=== PATIENT | female | born 1975 | race Caucasian/White ===

== ENCOUNTER 2017-06-09 18:26 | Emergency (ER) | payer MEDICAID ==
[~2017-06-09 18:26] MED LIST: ALBU8.5H4 IH; DIVA125T3 PO; LORA10TA7
== END 2017-06-09 18:42 | disposition left against medical advice (07) ==
LOC: ER 18:27
DX: Z53.21 Procedure and treatment not carried out due to patient leaving prior to being seen by health care provider (principal)

== ENCOUNTER 2017-12-23 10:46 | Emergency (ER) | payer MEDICAID ==
[~2017-12-23] VITALS: Ht 170.2 cm; Wt 68.0 kg
[~2017-12-23 10:46] MED LIST changes: -DIVA125T3 PO; +DIVA125T31 PO
[2017-12-23 10:53] VITALS: BP 116/60
[2017-12-23] MEDS ORDERED: acetaminophen 325mg tablet PO ONE (11:35)
[2017-12-23] MEDS ORDERED: ibuprofen tablet 400 MG TABLET PO ONE (11:35)
== END 2017-12-23 12:20 | disposition home or self-care (01) ==
LOC: ER 10:46
DX: S60.042A Contusion of left ring finger without damage to nail, initial encounter (principal); S60.052A Contusion of left little finger without damage to nail, initial encounter; M25.532 Pain in left wrist; J44.9 Chronic obstructive pulmonary disease, unspecified; F12.90 Cannabis use, unspecified, uncomplicated; Z87.442 Personal history of urinary calculi; Z60.2 Problems related to living alone; Z59.0 Homelessness; Z90.89 Acquired absence of other organs; Z88.0 Allergy status to penicillin; Z88.2 Allergy status to sulfonamides; Z79.899 Other long term (current) drug therapy; W22.8XXA Striking against or struck by other objects, initial encounter; Y92.89 Other specified places as the place of occurrence of the external cause; Y93.89 Activity, other specified; Y99.8 Other external cause status
CPT/HCPCS: 29125; 73110; 73130; 99284

== ENCOUNTER 2018-12-06 10:38 | Emergency (ER) | payer MEDICAID | END 2018-12-06 11:36 | disposition left against medical advice (07) | LOC: ER 10:39 | DX: R10.9 Unspecified abdominal pain (principal); R11.2 Nausea with vomiting, unspecified; Z53.21 Procedure and treatment not carried out due to patient leaving prior to being seen by health care provider ==

== ENCOUNTER 2020-03-12 09:57 | Day surgery (SDC) | payer MEDICAID ==
[~2020-03-12] VITALS: Ht 170.2 cm; Wt 75.8 kg
[2020-03-12] VITALS (11 sets, daily range): BP systolic 103–127; BP diastolic 41–68
[~2020-03-12 09:57] MED LIST changes: -ALBU8.5H4 IH; -DIVA125T31 PO; -LORA10TA7; +NO HOME MEDS; +ceFAZolin 2gm in dextrose, iso 50 ML IV ONE; +famotidine 10mg tablet PO ONE; +ringers solution, lacted 1,000 ML IV SCH; +vancomycin 1,500 MG in NS 300ml IV soln IV ONE
[2020-03-12] MEDS ORDERED: BUPIVAcaine/PF 2.5mg/ml (0.25%) 10ml vial ONE (11:44)
[2020-03-12] MEDS ORDERED: methylPREDNISolone sod succ 125mg/2ml vial ONE (11:44)
[2020-03-12 11:46] LABS: ISTAT ANION GAP 10 (8-12); ISTAT BUN 17 mg/dL (6-19); ISTAT CL 106 mmol/L (99-107); ISTAT CREATININE 0.7 mg/dL (0.6-1.1); ISTAT GLUCOSE 92 mg/dL (70-104); ISTAT HGB 15.3 g/dl (12.0-16.0); ISTAT Hct 45 %PCV (35-48); ISTAT IONIZED CALCIUM 1.29 mmol/L (1.03-1.32); ISTAT K 4.1 mmol/L (3.5-5.1); ISTAT NA 139 mmol/L (135-145); ISTAT TOTAL CO2 23 mmol/L (24-32); ISTAT eGFR > 90 ML/MIN; POC BUN/CREATININE RATIO 24.3 (6.6-38.0)
[2020-03-12] MEDS ORDERED: LIDOcaine 0.5% (5mg/ml) 50ml vial ONE (12:04)
[2020-03-12] MEDS ORDERED: midazolam 2 mg/2 ml injection ONE ×2 (12:07→12:13)
[2020-03-12] MEDS ORDERED: fentaNYL/PF 50MCG/1 ML 2ML syringe ONE ×2 (12:08→12:23)
[2020-03-12] MEDS ORDERED: BUPIVAcaine/PF 2.5 mg/ml (0.25%) 30ml vial ONE (12:23)
[2020-03-12] MEDS ORDERED: propofol inj 20 ML IV ONE (12:48)
--- NOTE | 2020-03-12 12:54 | NUR ---
Received from OR via [facility], accompanied by Anesthesiologist DR CHANG and report given by Anesthesiologist. 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 Addendum: 03/12/20 at 1413 by Anyi Cantrell RN Amended: Links added.
[2020-03-12] MEDS ORDERED: HYDROcodone/acetaminophen 5mg/325mg tablet PO ONE (14:30)
--- NOTE | 2020-03-12 14:44 | NUR ---
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 Addendum: 03/12/20 at 1505 by Anyi Cantrell RN Amended: Links added.
== END 2020-03-12 14:44 | disposition home or self-care (01) ==
LOC: PAS 09:57
PROVIDERS: ATTEND Orthopaedic Surgery
DX: G56.01 Carpal tunnel syndrome, right upper limb (principal); G56.21 Lesion of ulnar nerve, right upper limb; M65.331 Trigger finger, right middle finger; S66.112A Strain of flexor muscle, fascia and tendon of right middle finger at wrist and hand level, initial encounter; F31.9 Bipolar disorder, unspecified; E66.8 Other obesity; Z68.25 Body mass index [BMI] 25.0-25.9, adult; G89.4 Chronic pain syndrome; F12.90 Cannabis use, unspecified, uncomplicated; Z20.828 Contact with and (suspected) exposure to other viral communicable diseases; F17.210 Nicotine dependence, cigarettes, uncomplicated; Z87.442 Personal history of urinary calculi; Z88.8 Allergy status to other drugs, medicaments and biological substances; Z98.890 Other specified postprocedural states; X58.XXXA Exposure to other specified factors, initial encounter; Y93.89 Activity, other specified; Y92.89 Other specified places as the place of occurrence of the external cause; Y99.8 Other external cause status
CPT/HCPCS: 26055; 26356; 36415; 64719; 64721; 80047; 87635; A6222; J2001; J2250; J2704; J2930; J3010; J3370; J3490; J7040; A4215; A4618; A6449; A7000; J7120

== ENCOUNTER 2020-07-11 14:12 | Emergency (ER) | payer MEDICAID ==
[~2020-07-11] VITALS: Ht 170.2 cm; Wt 75.9 kg
[~2020-07-11 14:12] MED LIST changes: -ceFAZolin 2gm in dextrose, iso 50 ML IV ONE; -famotidine 10mg tablet PO ONE; -ringers solution, lacted 1,000 ML IV SCH; -vancomycin 1,500 MG in NS 300ml IV soln IV ONE
[2020-07-11 14:46] LABS: BASOPHILS # (AUTO) 0.1 X10'3 (0-0.2); BASOPHILS % (AUTO) 0.9 % (0-1); EOSINOPHILS # (AUTO) 0.2 X10'3 (0-0.9); EOSINOPHILS % (AUTO) 1.9 % (0-6); HEMATOCRIT 41.7 % (35.0-45.0); HEMOGLOBIN 13.9 g/dl (12.0-16.0); LYMPHOCYTES # (AUTO) 3.2 X10'3 (1.1-4.8); LYMPHOCYTES % (AUTO) 32.6 % (21-51); MEAN CORPUSCULAR HEMOGLOBIN 28.4 PG (27.0-31.0); MEAN CORPUSCULAR HGB CONC 33.4 g/dL (33.0-36.5); MEAN CORPUSCULAR VOLUME 84.9 FL (78-98); MEAN PLATELET VOLUME 8.2 FL (7.4-10.4); MONOCYTES # (AUTO) 0.9 X10'3 (0-0.9); MONOCYTES % (AUTO) 8.7 % (2-12); NEUTROPHILS # (AUTO) 5.6 X10'3 (1.8-7.7); NEUTROPHILS % (AUTO) 55.9 % (42-75); PLATELET COUNT 253 X10'3 (140-440); RED BLOOD COUNT 4.91 X10'6 (4.20-5.60); RED CELL DISTRIBUTION WIDTH 14.2 % (11.5-14.5)
[2020-07-11 14:57] LABS: ALANINE AMINOTRANSFERASE 22 U/L (12-78); ALBUMIN 3.6 G/DL (3.4-5.0); ALBUMIN/GLOBULIN RATIO 0.9 (1.1-1.5); ALKALINE PHOSPHATASE 111 IU/L (46-116); ANION GAP 15 (8-16); ASPARTATE AMINO TRANSFERASE 13 U/L (10-37); BILIRUBIN,TOTAL 0.6 MG/DL (0.1-1.0); BLOOD UREA NITROGEN 16 MG/DL (7-18); CALCIUM 9.3 MG/DL (8.5-10.1); CHLORIDE 103 MMOL/L (99-107); CREATININE 1.07 MG/DL (0.40-0.90); GLUCOSE 112 MG/DL (70-104); POTASSIUM 3.3 MMOL/L (3.5-5.1); SODIUM 139 MMOL/L (135-145); TOTAL CARBON DIOXIDE 21.5 MMOL/L (24-32); TOTAL PROTEIN 7.7 G/DL (6.4-8.2); eGFR 56 ML/MIN
--- NOTE | 2020-07-11 15:23 | NUR ---
[phone] CHRIS MOTHER OF PT CALLED AND WANTED AN UPDATE ON PT, I LET HER KNOW THAT WE WERE WAITNG ON PT'S LABS TO COME BACK AND WE WILL GO FROM THERE. MOTHER LET ME KOW THAT PT IS VERY ANXIOUS ABOUT COVID BECAUSE TWO OF HER FRIENDS FROM IT.
[2020-07-11 15:37] VITALS: BP 122/75
--- NOTE | 2020-07-11 15:49 | NUR ---
pt was educated on self isolation in the home she shares with her mom and her mom was also educated on isolation precautions. Pt was also educated on not sharing smoking paraphernalia with friends.
== END 2020-07-11 16:11 | disposition home or self-care (01) ==
LOC: ER 14:13
DX: B34.9 Viral infection, unspecified (principal); Z20.822 Contact with and (suspected) exposure to COVID-19; R06.02 Shortness of breath; G43.909 Migraine, unspecified, not intractable, without status migrainosus; J44.9 Chronic obstructive pulmonary disease, unspecified; F12.90 Cannabis use, unspecified, uncomplicated; F15.90 Other stimulant use, unspecified, uncomplicated; F17.210 Nicotine dependence, cigarettes, uncomplicated; Z88.0 Allergy status to penicillin; Z88.2 Allergy status to sulfonamides; Z88.8 Allergy status to other drugs, medicaments and biological substances; Z87.440 Personal history of urinary (tract) infections; Z87.442 Personal history of urinary calculi; Z59.0 Homelessness
CPT/HCPCS: 36415; 71045; 80053; 83605; 83880; 85025; 87040; 93005; 99285

== ENCOUNTER 2022-04-28 15:07 | Emergency (ER) | payer MEDICAID ==
[~2022-04-28] VITALS: Ht 170.2 cm; Wt 70.5 kg
[2022-04-28 15:29] VITALS: BP 172/117
[2022-04-28] MEDS ORDERED: HYDROcodone/acetaminophen 10/325mg tab PO ONE (16:40)
== END 2022-04-28 17:09 | disposition home or self-care (01) ==
LOC: ER 15:08
DX: S93.401A Sprain of unspecified ligament of right ankle, initial encounter (principal); M25.571 Pain in right ankle and joints of right foot; M25.471 Effusion, right ankle; J44.9 Chronic obstructive pulmonary disease, unspecified; F12.90 Cannabis use, unspecified, uncomplicated; F15.90 Other stimulant use, unspecified, uncomplicated; Z86.69 Personal history of other diseases of the nervous system and sense organs; Z87.442 Personal history of urinary calculi; Z87.440 Personal history of urinary (tract) infections; Z90.89 Acquired absence of other organs; Z98.890 Other specified postprocedural states; Z60.2 Problems related to living alone; Z59.00 Homelessness unspecified; Z88.0 Allergy status to penicillin; Z88.2 Allergy status to sulfonamides; Z88.8 Allergy status to other drugs, medicaments and biological substances; X58.XXXA Exposure to other specified factors, initial encounter; Y93.89 Activity, other specified; Y92.89 Other specified places as the place of occurrence of the external cause; Y99.8 Other external cause status
CPT/HCPCS: 73610; 99284; A6449

== ENCOUNTER 2024-09-01 12:37 | Emergency (ER) | payer MEDICAID ==
[~2024-09-01] VITALS: Ht 170.2 cm; Wt 81.8 kg
[2024-09-01 12:42] VITALS: BP 148/70; PULSE 100; RESP 18; TEMP 96.9; O2SAT 98
[2024-09-01] MEDS ORDERED: ACET-1025 PO (13:35)
[2024-09-01] MEDS ORDERED: IBUP-1986 PO (13:35)
[2024-09-01] MEDS ORDERED: CLIN300C71 PO (13:35)
[2024-09-01] MEDS: ketorolac trometh 30MG/ML vial 30 MG/ML VIAL IV STA (14:22)
[2024-09-01] MEDS: clindamycin 150mg capsule PO ONE (14:31)
[2024-09-01] MEDS: ibuprofen tablet 400 MG TABLET PO ONE (14:33)
[2024-09-01] MEDS: acetaminophen 325mg tablet PO ONE (14:33)
== END 2024-09-01 14:40 | disposition left against medical advice (07) ==
LOC: ER 12:38
DX: K04.7 Periapical abscess without sinus (principal); J44.9 Chronic obstructive pulmonary disease, unspecified; F12.90 Cannabis use, unspecified, uncomplicated; F15.90 Other stimulant use, unspecified, uncomplicated; Z87.440 Personal history of urinary (tract) infections; Z88.0 Allergy status to penicillin; Z88.2 Allergy status to sulfonamides; Z90.89 Acquired absence of other organs
CPT/HCPCS: 99284